=== PATIENT | male | born 1955 | race Caucasian/White ===

== ENCOUNTER 2018-02-15 00:45 | Emergency (ER) | payer OTHER ==
[~2018-02-15] VITALS: Ht 175.3 cm; Wt 83.9 kg
[2018-02-15 00:48] VITALS: BP 147/99
[2018-02-15] MEDS ORDERED: SULFAMETH/TRIMETH 800/160 MG 1 UDTAB TABLET PO ONE ×2 (01:06→01:30)
== END 2018-02-15 01:33 | disposition home or self-care (01) ==
LOC: ER 00:45
DX: L73.8 Other specified follicular disorders (principal); N40.0 Benign prostatic hyperplasia without lower urinary tract symptoms
CPT/HCPCS: 99283; A4606; Z7610